=== PATIENT | male | born 1995 | race African-American/Black ===

== ENCOUNTER 2021-05-20 02:32 | Emergency (ER) | payer OTHER ==
[~2021-05-20] VITALS: Ht 188 cm; Wt 108.9 kg
[2021-05-20 03:02] LABS: BASOPHILS % (AUTO) 0.6 % (0.0-2.0); EOSINOPHILS % (AUTO) 1.4 % (0.0-6.0); HEMATOCRIT 46 % (39-51); HEMOGLOBIN 15.9 g/dL (13.5-17.5); LYMPHOCYTES % (AUTO) 31.1 % (20.0-44.0); MEAN CORPUSCULAR HGB CONC 34 g/dl (31.0-36.0); MEAN CORPUSCULAR VOLUME 94 fL (80-96); MONOCYTES # (AUTO) 0.6 K/uL (0.1-1.30); MONOCYTES % (AUTO) 9.3 % (2.0-12.0); NEUTROPHILS # (AUTO) 3.8 K/uL (1.8-8.9); NEUTROPHILS % (AUTO) 57.6 % (43.0-81.0); PLATELET COUNT (AUTO) 183 K/uL (150-450); RED BLOOD CELL COUNT(AUTO) 4.94 MIL/uL (4.5-6.0); WHITE BLOOD COUNT (AUTO) 6.6 K/uL (4.3-11.0)
[2021-05-20 03:12] LABS: CALCIUM, SERUM 8.6 mg/dL (8.5-10.1); CARBON DIOXIDE 33 mmol/L (21-32); CHLORIDE 104 mmol/L (98-107); CREATININE 1.1 mg/dL (0.6-1.3); GLUCOSE 90 mg/dL (74-106); POTASSIUM 4.2 mmol/L (3.5-5.1); SODIUM SERUM 141 mmol/L (136-145); UREA NITROGEN, BLOOD 11 mg/dL (7-18)
--- NOTE | 2021-05-20 03:15 | NUR ---
PATIENT BIBRA C/O SUICIDAL IDEATION WITH A PLAN "TO TAKE A LOT OF PILLS". PATIENT IS A/O X 4, RR EVEN AND UNLABORED, NO SOB NOTED. PATIENT CONNECETED TO CARDIAC AND POX MONITOR. PATIENT PLACED IN HOSPITAL GOWN, BELONGINGS PLACED IN LOCKER. SITTER IS AT BEDSIDE. WILL CONTINUE TO MONITOR.
[2021-05-20 03:17] LABS: ALANINE AMINOTRANSFERASE 21 U/L (12-78); ALBUMIN 3.9 g/dL (3.4-5.0); ALCOHOL, BLOOD < 3 mg/dL (0-0); ALKALINE PHOSPHATASE 59 U/L (46-116); ASPARTATE AMINOTRANSFERASE 12 U/L (15-37); BILIRUBIN,DIRECT 0.1 mg/dL (0.0-0.2); BILIRUBIN,TOTAL 0.3 mg/dL (0.2-1.0); TOTAL PROTEIN, SERUM 7.6 g/dL (6.4-8.2)
[2021-05-20 03:19] LABS: ACETAMINOPHEN 0 ug/ml (10-30)
--- NOTE | 2021-05-20 03:20 | NUR ---
URINE SENT TO LAB
--- NOTE | 2021-05-20 03:21 | NUR ---
ASSISTANT [employer]ENN[employer] PROFESSIONAL AT BEDSIDE
[2021-05-20 03:23] LABS: BILIRUBIN,URINE NEGATIVE (NEGATIVE); COLOR,URINE YELLOW (YELLOW); LEUKOCYTE ESTERASE ,URINE NEGATIVE (NEGATIVE); NITRITE, URINE NEGATIVE (NEGATIVE); PROTEIN,URINE NEGATIVE (NEGATIVE); UGLUCOSE NEGATIVE (NEGATIVE); UROBILINOGEN,URINE 0.2 EU/dL (0.2)
--- NOTE | 2021-05-20 05:03 | NUR ---
FAXED CLINICALS AND FACE SHEET TO [facility]
--- NOTE | 2021-05-20 08:05 | NUR ---
CALL FROMRENA OKAYED TO SEND PATIENT
--- NOTE | 2021-05-20 08:11 | NUR ---
CALLED [facility] ETA 0930 PER JACK.
--- NOTE | 2021-05-20 09:01 | NUR ---
REPORT GIVEN TO LUBNA FROM [facility]
--- NOTE | 2021-05-20 10:10 | NUR ---
REPORT GIVEN TO [facility] STAFF. THE PATIENT IS DISCHARGED TO [facility] IN STABLE CONDITION.
[2021-05-20 10:11] VITALS: BP 133/75
== END 2021-05-20 10:11 ==
LOC: ER 02:39
DX: R45.851 Suicidal ideations (principal); F19.10 Other psychoactive substance abuse, uncomplicated; F20.9 Schizophrenia, unspecified; Z59.00 Homelessness unspecified; Z20.822 Contact with and (suspected) exposure to COVID-19
CPT/HCPCS: 36415; 80048; 80076; 80143; 80307; 80320; 81003; 85025; 87426; 99285; C9803; G0480